=== PATIENT | male | born 1975 | race Two or more races ===

== ENCOUNTER 2017-04-15 23:21 | Emergency (ER) | payer OTHER ==
[~2017-04-15] VITALS: Ht 160 cm; Wt 59.0 kg
[~2017-04-15 23:21] MED LIST: ALLO300T2; IBUP-1955
--- NOTE | 2017-04-15 23:40 | NUR ---
PATIENT RECEIVED FROM HOME C/O N/V X1 DAY VOMIT X5 TIMES TOTAL WELL GEN BODY PAIN 09/05. NO SOB NOTED AT THIS TIME. A/O X4 ABLE TO MAKE NEEDS KNOWN. WILL CONTINUE TO MONITOR FOR ANY CHANGES.
[2017-04-16] MEDS ORDERED: ONDANSETRON HCL/PF 4 MG/2 ML VIAL ONE (00:24)
[2017-04-16] MEDS ORDERED: KETOROLAC TROMETHAMINE INJ 30 MG/ML VIAL ONE (00:24)
--- NOTE | 2017-04-16 00:29 | NUR ---
IVF STARTED ON LEFT HAND 20G
[2017-04-16] MEDS ORDERED: ONDANSETRON HCL/PF 4 MG/2 ML VIAL IVP ONE (00:30)
[2017-04-16] MEDS ORDERED: KETOROLAC TROMETHAMINE INJ 30 MG/ML VIAL IV ONE (00:30)
[2017-04-16] MEDS ORDERED: IV NS 0.9% 1,000 ML BAG IV ONE (00:30)
--- NOTE | 2017-04-16 00:59 | NUR ---
AWAITING FINISH IVF TO D/C. DISCHARGE INSTRUCTIONS HAVE BEEN INSTRCUTED TO PATIENT
[2017-04-16 01:18] VITALS: BP 110/59
== END 2017-04-16 01:19 | disposition home or self-care (01) ==
LOC: ER 23:22
DX: R11.2 Nausea with vomiting, unspecified (principal); R50.9 Fever, unspecified; M10.9 Gout, unspecified
CPT/HCPCS: 96361; 96374; 96375; 99284; A4606; J1885; J2405; J7030; Z7610